=== PATIENT | female | born 1995 | race American Indian/Alaskan Native ===

== ENCOUNTER 2017-12-12 14:28 | Emergency (ER) | payer MEDICAID ==
[2017-12-12] MEDS ORDERED: ZOFRAN IV ONE (16:04)
--- NOTE | 2017-12-12 16:04 | Emergency Department Report ---
Chief Complaint: Nausea/Vomiting/Diarrhea Stated Complaint: N/V 9 WEEKS PREG - HPI History of Present Illness: 22-year-old female who is currently 9 weeks estimated due date July 2018, feels dehydrated. She feels numb throughout her body. She's had constant vomiting for the last 9 weeks. - Exam Vital Signs: Vital Signs 12/12/17 14:32 Temperature 98.1 F Pulse Rate 81 Respiratory 18 Rate Blood Pressure 112/78 O2 Sat by Pulse 97 Oximetry MSE screening note: Focused history and physical exam performed. Due to findings the following was ordered: ED Disposition for MSE Condition: Stable Referrals: PRIMARY CARE, [Primary Care Provider] - 3-5 Days
[2017-12-12] MEDS ORDERED: NACL 0.9% 1000 ML 2,000 ML IV ONE (16:05)
[2017-12-12 16:24] LABS: Basophils % (Auto) 0.3 % (0.0-1.8); Eosinophils % (Auto) 0.4 % (0.0-4.3); Hematocrit 44.3 % (30.3-42.9); Hemoglobin 15.1 gm/dl (10.1-14.3); Lymphocytes # (Auto) 1.5 K/mm3 (1.2-5.4); Lymphocytes % (Auto) 14.5 % (13.4-35.0); Mean Corpuscular HGB Conc 34 % (30-34); Mean Corpuscular Hemoglobin 32 pg (28-32); Mean Corpuscular Volume 93 fl (79-97); Monocytes # (Auto) 0.6 K/mm3 (0.0-0.8); Monocytes % (Auto) 5.3 % (0.0-7.3); Platelet Count 273 K/mm3 (140-440); Red Blood Count 4.75 M/mm3 (3.65-5.03); Red Cell Distribution Width 13.4 % (13.2-15.2)
[2017-12-12 16:39] LABS: BUN/Creatinine Ratio 20; Blood Urea Nitrogen 10 mg/dL (7-17); Calcium 9.7 mg/dL (8.4-10.2); Hemolysis Index 78
[2017-12-12] MEDS ORDERED: REGLAN IV ONE (16:43)
[2017-12-12] MEDS ORDERED: MORPHINE IV ONE (16:43)
--- NOTE | 2017-12-12 16:49 | Emergency Department Report ---
ED Abdominal Pain HPI - General Chief Complaint: Nausea/Vomiting/Diarrhea Stated Complaint: N/V 9 WEEKS PREG Time Seen by Provider: 12/12/17 16:35 Source: patient, EMS Mode of arrival: Ambulatory Limitations: No Limitations - History of Present Illness Initial Comments: This is 32-year-old female here with nausea vomiting 9 weeks. Patient states all of this started since I find that I was . Patient states states that I am unable to keep anything down. Patient states I went to [facility] [place] and they gave me Zofran but it makes me numb. Patient's that I feel dizzy. Denies any ultrasound since found out that she is . Denies any vaginal bleeding or discharge or painful urination. Denies any fever or chills. Patient says she has an appointment on 12/18/2017 with [facility] [place]. Pain is 8 out of 10 to left lower quadrant cramping and comes and goes. Denies any back pain. Last menstrual period was 10/08/2017. MD Complaint: abdominal pain, other (nausea and vomiting) Onset/Timin -: week(s) Location: [facility] Radiation: none Migration to: LLQ Severity: severe Severity scale (0 -10): 8 Quality: cramping Consistency: intermittent Improves With: nothing Worsens With: eating Context: other (patient is ) Associated Symptoms: nausea, vomiting, anorexia. denies: diarrhea, fever, chills, constipation, dysuria, hematemesis, hematochezia, melena, hematuria, syncope Treatments Prior to Arrival: other (Zofran) - Related Data LMP Date: 10/08/17 Home Medications Medication Instructions Recorded Confirmed Last Taken Vit No.126/Iron/Folic 1 each PO 07/27/13 07/27/13 07/27/13 [Classic Tablet] Previous Rx's Medication Instructions Recorded Last Taken Type Metoclopramide [Reglan] 10 mg PO Q6H PRN #20 tab 12/12/17 Unknown Rx Allergies Allergy/AdvReac Type Severity Reaction Status Date / Time No Known Allergies Allergy Verified 07/27/13 16:05 ED Review of Systems ROS: Stated complaint: N/V 9 WEEKS PREG Other details as noted in HPI Comment: All other systems reviewed and negative Constitutional: other (some dizziness) ENT: denies: ear pain, throat pain, congestion Respiratory: no symptoms reported Cardiovascular: denies: chest pain, palpitations, dyspnea on exertion, edema, syncope, paroxysmal nocturnal dyspnea Gastrointestinal: abdominal pain, nausea, vomiting. denies: diarrhea, constipation, hematemesis, melena, hematochezia Genitourinary: denies: urgency, dysuria, frequency, hematuria, discharge Musculoskeletal: denies: back pain, joint swelling, arthralgia, myalgia Skin: denies: rash Neurological: denies: headache, weakness, numbness, paresthesias, confusion, abnormal gait, vertigo ED Past Medical Hx - Past Medical History Previous Medical History?: No Hx Hypertension: No Hx Diabetes: No Hx Deep Vein Thrombosis: No Hx Renal Disease: No Hx Sickle Cell Disease: No Hx Seizures: No Hx Asthma: No - Surgical History Past Surgical History?: No - Family History Family history: no significant - Social History Smoking Status: Never Smoker Substance Use Type: None - Medications Home Medications: Home Medications Medication Instructions Recorded Confirmed Last Taken Type Vit No.126/Iron/Folic 1 each PO 07/27/13 07/27/13 07/27/13 History [Classic Tablet] Metoclopramide [Reglan] 10 mg PO Q6H PRN #20 tab 12/12/17 Unknown Rx ED Physical Exam - General Limitations: No Limitations General appearance: alert, in no apparent distress - Head Head exam: Present: atraumatic, normocephalic, normal inspection - Eye Eye exam: Present: normal appearance, PERRL, EOMI Pupils: Present: normal accommodation - ENT ENT exam: Present: mucous membranes moist, TM's normal bilaterally, normal external ear exam. Absent: normal exam - Neck Neck exam: Present: normal inspection, full ROM, other (no tenderness). Absent : tenderness, meningismus, lymphadenopathy, thyromegaly - Respiratory Respiratory exam: Present: normal lung sounds bilaterally. Absent: respiratory distress, chest wall tenderness, accessory muscle use - Cardiovascular Cardiovascular Exam: Present: regular rate, normal rhythm, normal heart sounds. Absent: systolic murmur, diastolic murmur - GI/Abdominal GI/Abdominal exam: Present: soft, tenderness (left lower quadrant), normal bowel sounds. Absent: distended, guarding, rebound, rigid, organomegaly, mass, bruit, pulsatile mass, hernia - External exam: Present: normal external exam. Absent: erythema, swelling, lesions, lacerations, ecchymosis, bleeding Speculum exam: Present: normal speculum exam. Absent: erythema, vaginal discharge, cervical discharge, vaginal bleeding, foreign body, tissue, laceration Bi-manual exam: Present: normal bi-manual exam. Absent: cervical motion tendernes, adnexal tenderness, adnexal mass, uterine enlargement, uterine tenderness - Expanded Exam Expanded Female exam: Absent: vaginal laceration, tissue present in vagina, herpetic lesions, vulvar erythema, vulvar tenderness, foreign body External exam: Present: normal Amniotic fluid: Present: none Speculum exam: Present: cervical OS closed - Extremities Exam Extremities exam: Present: normal inspection, full ROM, normal capillary refill , other. Absent: tenderness, pedal edema, joint swelling, calf tenderness - Back Exam Back exam: Present: normal inspection, full ROM, other (CVA tenderness). Absent : tenderness, CVA tenderness (R), CVA tenderness (L), muscle spasm, paraspinal tenderness, vertebral tenderness, rash noted - Neurological Exam Neurological exam: Present: alert, oriented X3, normal gait, reflexes normal. Absent: motor sensory deficit - Psychiatric Psychiatric exam: Present: normal affect, normal mood - Skin Skin exam: Present: warm, dry, intact, normal color. Absent: rash ED Course Vital Signs 12/12/17 12/12/17 14:32 17:00 Temperature 98.1 F Pulse Rate 81 Respiratory 18 16 Rate Blood Pressure 112/78 O2 Sat by Pulse 97 Oximetry - Reevaluation(s) Reevaluation #1: 12/12/17 17:13 Patient received IV fluid normal saline 1 L, Zofran 4 mg IV, morphine 4 mg IV and awaiting ultrasound and lab results. Reevaluation #2: 12/12/17 20:32 Patient now able to tolerate oral liquids and she drank 3 cups of cranberry juice without any nausea or vomiting. Ultrasound came back with IUP at 9 weeks 2 days with heart beat at 170 bpm. Also findings for 2 left ovarian cyst measuring 2 cm. Patient received a total of 2 L of IV fluids and emergency room ED Medical Decision Making - Lab Data Result diagrams: 12/12/17 16:07 12/12/17 16:07 Lab Results 12/12/17 12/12/17 12/12/17 Range/Units 16:07 16:07 16:07 WBC 10.5 (4.5-11.0) K/mm3 RBC 4.75 (3.65-5.03) M/mm3 Hgb 15.1 H (10.1-14.3) gm/dl Hct 44.3 H (30.3-42.9) % MCV 93 (79-97) fl MCH 32 (28-32) pg MCHC 34 (30-34) % RDW 13.4 (13.2-15.2) % Plt Count 273 (140-440) K/mm3 Lymph % (Auto) 14.5 (13.4-35.0) % [place] % (Auto) 5.3 (0.0-7.3) % Eos % (Auto) 0.4 (0.0-4.3) % Baso % (Auto) 0.3 (0.0-1.8) % Lymph # 1.5 (1.2-5.4) K/mm3 [place] # 0.6 (0.0-0.8) K/mm3 Eos # 0.0 (0.0-0.4) K/mm3 Baso # 0.0 (0.0-0.1) K/mm3 Seg Neutrophils % 79.5 H (40.0-70.0) % Seg Neutrophils # 8.4 H (1.8-7.7) K/mm3 Sodium 135 L (137-145) mmol/L Potassium 4.8 (3.6-5.0) mmol/L Chloride 95.3 L (98-107) mmol/L Carbon Dioxide 20 L (22-30) mmol/L Anion Gap 25 mmol/L BUN 10 (7-17) mg/dL Creatinine 0.5 L (0.7-1.2) mg/dL Estimated GFR > 60 ml/min BUN/Creatinine Ratio 20 % Glucose 76 (65-100) mg/dL Calcium 9.7 (8.4-10.2) mg/dL HCG, Quant 151336 H (0-4) mIU/mL Urine Color (Yellow) Urine Turbidity (Clear) Urine pH (5.0-7.0) Ur Specific [place] (1.003-1.030) Urine Protein (Negative) mg/dL Urine Glucose (UA) (Negative) mg/dL Urine Ketones (Negative) mg/dL Urine Blood (Negative) Urine Nitrite (Negative) Ur Reducing Substances Urine Bilirubin (Negative) Urine Ictotest Urine Urobilinogen (<2.0) mg/dL Ur Leukocyte Esterase (Negative) Urine WBC (Auto) (0.0-6.0) /HPF Urine RBC (Auto) (0.0-6.0) /HPF U Epithel Cells (Auto) (0-13.0) /HPF Urine Mucus /HPF Urine HCG, Qual (Negative) 12/12/17 Range/Units Unknown WBC (4.5-11.0) K/mm3 RBC (3.65-5.03) M/mm3 Hgb (10.1-14.3) gm/dl Hct (30.3-42.9) % MCV (79-97) fl MCH (28-32) pg MCHC (30-34) % RDW (13.2-15.2) % Plt Count (140-440) K/mm3 Lymph % (Auto) (13.4-35.0) % [place] % (Auto) (0.0-7.3) % Eos % (Auto) (0.0-4.3) % Baso % (Auto) (0.0-1.8) % Lymph # (1.2-5.4) K/mm3 [place] # (0.0-0.8) K/mm3 Eos # (0.0-0.4) K/mm3 Baso # (0.0-0.1) K/mm3 Seg Neutrophils % (40.0-70.0) % Seg Neutrophils # (1.8-7.7) K/mm3 Sodium (137-145) mmol/L Potassium (3.6-5.0) mmol/L Chloride (98-107) mmol/L Carbon Dioxide (22-30) mmol/L Anion Gap mmol/L BUN (7-17) mg/dL Creatinine (0.7-1.2) mg/dL Estimated GFR ml/min BUN/Creatinine Ratio % Glucose (65-100) mg/dL Calcium (8.4-10.2) mg/dL HCG, Quant (0-4) mIU/mL Urine Color Yellow (Yellow) Urine Turbidity Clear (Clear) Urine pH 5.0 (5.0-7.0) Ur Specific [place] 1.035 H (1.003-1.030) Urine Protein 30 mg/dl (Negative) mg/dL Urine Glucose (UA) Neg (Negative) mg/dL Urine Ketones 80 (Negative) mg/dL Urine Blood Neg (Negative) Urine Nitrite Neg (Negative) Ur Reducing Substances Not Reportable Urine Bilirubin Neg (Negative) Urine Ictotest Not Reportable Urine Urobilinogen < 2.0 (<2.0) mg/dL Ur Leukocyte Esterase Neg (Negative) Urine WBC (Auto) 3.0 (0.0-6.0) /HPF Urine RBC (Auto) 3.0 (0.0-6.0) /HPF U Epithel Cells (Auto) 14.0 H (0-13.0) /HPF Urine Mucus 3+ /HPF Urine HCG, Qual Positive A (Negative) - Radiology Data Radiology results: report reviewed Patient with single intrauterine gestation estimated at 9 weeks 2 days. heart rate is at 170 bpm. No subchorionic bleed or hemorrhage noted. Patient with 2 left ovarian cyst largest a 2 cm. Right ovary is normal - Medical Decision Making ED course: Patient reports that she has been having nausea vomiting over the last week and went to [facility] to give her Zofran which made her none. She states she is 9 weeks and she has not had ultrasound in the past. She is complaining of abdominal pain to her left lower quadrant. Patient 's that she has an appointment with [facility] in [place]. Patient was given normal saline spent 2 L and Zofran 4 mg IV emergency room and was drained by Dr. Rachelle Marcos. CBC stable except her hemoglobin and hematocrit is elevated with slight shift into the left with normal white count. BMP is stable , urinalysis is normal except patient with elevation and specific gravity and ketones of 80 which suggests dehydration. Physical findings for oral mucosa dry without any other abnormalities. HCG quantitative is within range of 9 weeks and also positive urine test. Ultrasound report shows patient with stable IUP at 9 weeks and 2 days and stable heart beats. Patient with 2 cyst on her left or very largest measures 2 cm. Patient was further given morphine IV 3 mg, Reglan 10 mg IV and she was able to tolerate 3 cups of cranberry juice orally without any nausea or vomiting. I discussed the patient her laboratory and ultrasound results and she voiced understanding and she will be following up with her [facility] on 12/18/2017. I discussed with her I will give her Reglan and that if Zofran doesn't help then she should stop taking the Zofran. I told her to take Reglan before she eats and to increase her fluid intake to prevent dehydration. Patient voiced understanding and and she feels better and discharged from ED in stable condition with prescription for Reglan. Critical care attestation.: If time is entered above; I have spent that time in minutes in the direct care of this critically ill patient, excluding procedure time. ED Disposition Clinical Impression: Hyperemesis gravidarum before end of 22 week gestation, dehydration, Threatened , Abdominal pain during intrauterine Ovarian cyst Qualifiers: Laterality: left Qualified Code(s): N83.202 - Unspecified ovarian cyst, left side Disposition: - TO HOME OR SELFCARE Is pt being admited?: No Does the pt Need Aspirin: No Condition: Stable Instructions: Hyperemesis Gravidarum (ED), Abdominal Pain in (ED), Ovarian Cyst (ED), Dehydration (ED), Threatened Miscarriage (ED) Additional Instructions: Please increase her fluid intake to 2-3 L of water, apple juice, orange juice, cranberry juice. Remember that you are drinking for 2. Take Reglan every 8 hours as needed for nausea and vomiting and please try to take this prior to eating and Please keep your appointment with [facility] on 12/18/2017 If his symptoms return and worsens not relieved by Reglan that he'll need to return to the hospital Your lab results show that you're dehydrated and you will need to increase her fluid intake significantly Prescriptions: Metoclopramide [Reglan] 10 mg PO Q6H PRN #20 tab PRN Reason: Nausea And Vomiting Referrals: [facility] [Outside] - 12/14/17 keep your appointment with[facility] [Other] - 3-5 Days Forms: Work/School Release Form(ED)
[2017-12-12 18:41] LABS: HCG Qualitative,Urine Positive (Negative)
[2017-12-12 18:44] LABS: Bilirubin,Urine NEG (Negative); Blood,Urine NEG (Negative); Color,Urine Yellow (Yellow); Mucus,Urine 3+ /HPF; Nitrite,Urine NEG (Negative); Urobilinogen,Urine < 2.0 mg/dL (<2.0)
--- NOTE | 2017-12-12 19:48 | Ultrasound Report ---
FINAL REPORT EXAM: US OB TRANSVAGINAL HISTORY: abdominal pain/n/v TECHNIQUE: Ultrasound pelvis transvaginal PRIORS: None. FINDINGS: There is single live intrauterine gestation present. [place]lor[place]-rump length 2.48 centimeters with estimated gestational age of 9 weeks 2 days estimated date of delivery July 15, 2018 cardiac activity is present with heart rate of 170 beats per minute. Yolk sac is identified Right ovary 3.5 x 2.1 x 1.8 centimeters Left ovary is 4.3 x 3.1 x 4.2 centimeters. Two left ovarian cysts are noted largest is 2.0 centimeters No free fluid identified in the cul-de-sac IMPRESSION: Single live intrauterine gestation estimated at 9 weeks 2 days
--- NOTE | 2017-12-12 19:50 | Ultrasound Report ---
FINAL REPORT EXAM: US OB < = 14 WEEKS FETUS HISTORY: abdominal pain/n/v TECHNIQUE: Ultrasound pelvis transabdominal PRIORS: None. FINDINGS: There is single live intrauterine gestation present. [place]-rump length 2.48 centimeters with estimated gestational age of 9 weeks 2 days estimated date of delivery July 15, 2018 cardiac activity is present with heart rate of 170 beats per minute. Yolk sac is identified Right ovary 3.5 x 2.1 x 1.8 centimeters Left ovary is 4.3 x 3.1 x 4.2 centimeters. Two left ovarian cysts are noted largest is 2.0 centimeters No free fluid identified in the cul-de-sac IMPRESSION: Single live intrauterine gestation estimated at 9 weeks 2 days
[2017-12-12 21:32] VITALS: BP 116/70
== END 2017-12-12 21:00 | disposition home or self-care (01) ==
LOC: ED 14:28
DX: O21.1 Hyperemesis gravidarum with metabolic disturbance (principal); O20.0 Threatened abortion; N83.202 Unspecified ovarian cyst, left side; Z3A.09 9 weeks gestation of pregnancy
CPT/HCPCS: 36415; 76801; 76817; 80048; 81001; 81025; 84702; 85025; 87086; 96361; 96374; 96375; 99285; J2270; J2405; J2765; J7030